=== PATIENT | female | born 1950 | race Hispanic/Latino ===

== ENCOUNTER 2025-04-11 21:32 | Emergency (ER) | payer MEDICARE, MEDICAID ==
[~2025-04-11] VITALS: Ht 165.1 cm; Wt 120.0 kg
[2025-04-11 21:56] LABS: BASOPHILS 0.2 % (0.1-1.2); EOSINOPHILS 0 % (0.7-5.8); LYMPHOCYTES 15.2 % (19.3-51.7); MCH 30.7 PG (25.6-32.2); MCHC 33.7 g/dL (32.2-35.5); MCV 91.2 fL (79.4-94.8); MONOCYTES 4.7 % (4.7-12.5); NEUTROPHILS 79.4 % (34.0-71.1); RBC 4.56 M/uL (3.93-5.22)
[2025-04-11] MEDS ORDERED: FAMOTIDINE 20 MG/ 2 ML VIAL IV ONE (22:00)
[2025-04-11] MEDS ORDERED: ASPIRIN 81 MG CHEW PO ONE (22:00)
[2025-04-11] MEDS ORDERED: NITROGLYCERIN 0.4 MG SUBL SL PRN (22:00)
[2025-04-11 22:07] LABS: CHOLESTEROL/HDL RATIO 2.0; LDL CHOLESTEROL 73.0 mg/dL (< 129); NON-HDL CHOLESTEROL 86.0; VLDL CHOLESTEROL 13.0
[2025-04-11 22:15] LABS: ALT (SGPT) 27.0 U/L (14-59); AST (SGOT) 15.0 U/L (15-37); GLOMERULAR FILTRATION RATE,EST 100.0 mL/min (>60); PROTEIN, TOTAL 7.0 g/dL (6.4-8.2); UREA NITROGEN 22.0 mg/dL (7-18)
[2025-04-11] MEDS ORDERED: MULTI VITAMIN1 EACH PO (22:17)
[2025-04-11] MEDS ORDERED: THYROID (22:18)
[2025-04-11] MEDS ORDERED: VITAMIN D31 ML MISC (22:18)
[2025-04-11 22:49] LABS: BLOOD/HGB, URINE TRACE-I (Negative); KETONE, URINE NEGATIVE (Negative); LEUK ESTERASE, URINE NEGATIVE (negative); NITRITE, URINE POSITIVE (negative)
[2025-04-11 23:03] LABS: AMPHETAMINES, URINE NEGATIVE (NEGATIVE); BARBITURATES, URINE NEGATIVE (NEGATIVE); BENZODIAZEPINE, URINE NEGATIVE (NEGATIVE); CANNABINOID, URINE NEGATIVE (NEGATIVE); COCAINE, URINE NEGATIVE (NEGATIVE); ECSTASY, URINE NEGATIVE (NEGATIVE); FENTANYL, URINE NEGATIVE (NEGATIVE); METHADONE, URINE NEGATIVE (NEGATIVE); OPIATES, URINE NEGATIVE (NEGATIVE); OXYCODONE, URINE NEGATIVE (NEGATIVE); PHENCYCLIDINE, URINE NEGATIVE (NEGATIVE)
[2025-04-11 23:06] LABS: BACTERIA, URINE 3+ /hpf (negative); CASTS, URINE NONE SEEN \\lpf; CRYSTALS, URINE NONE SEEN (0-1+); EPITHELIAL CELLS, URINE SQUAMOUS 1+ /lpf (0-1+); REFLEX CULTURE, URINE Yes (No)
[2025-04-12] MEDS ORDERED: NITROFURANTOIN MONOHYD MACROCR 100 MG HOME.PACK PO ONE (00:45)
[2025-04-12] MEDS ORDERED: MACROBID 100 M100 MG PO (00:56)
[2025-04-12 01:30] VITALS: BP 128/61
[2025-04-12] MEDS ORDERED: OMEPRAZOLE20 MG PO (03:02)
--- NOTE | 2025-04-12 10:45 | EKG ---
[facility] [address] [facility] [place] [address] Signed Sinus bradycardia Minimal voltage criteria for LVH, may be normal variant ( [place] product ) Borderline ECG No previous ECGs available Confirmed by Selma Callaway DO ([id number]) on 04/12/2025 10:45:18 AM Electronically Signed By: SELMA CALLAWAY DO 04/12/25 1045 PATIENT NAME: BRITTANY MCNEIL Electrocardiogram DATE OF : 54 PHYSICIAN: SELMA CALLAWAY DO REPORT #: [id number] REPORT IS CONFIDENTIAL AND NOT TO BE RELEASED WITHOUT AUTHORIZATION
== END 2025-04-12 01:32 | disposition home or self-care (01) ==
LOC: ED 21:32
PROVIDERS: Internal Medicine
DX: N39.0 Urinary tract infection, site not specified (principal); E03.9 Hypothyroidism, unspecified; Z98.84 Bariatric surgery status; Z90.49 Acquired absence of other specified parts of digestive tract; Z79.890 Hormone replacement therapy; Z79.899 Other long term (current) drug therapy
CPT/HCPCS: 36415; 71045; 74177; 80053; 80061; 80307; 81001; 83036; 83690; 83880; 84484; 85025; 85379; 87077; 87088; 87186; 93005; 93010; 96374; 99285-25; A9270; Q9967